=== PATIENT | female | born 2000 | race African-American/Black ===

== ENCOUNTER 2024-12-04 15:51 | Emergency (ER) | payer MEDICAID, SELFPAY ==
[2024-12-04 16:26] VITALS: BP 107/72; PULSE 77; TEMP 37; O2SAT 99; BMI 24.7
[2024-12-04 17:18] LABS: Internal Control Within Normal Limits; SARS-CoV-2 Ag NEGATIVE (NEGATIVE)
--- NOTE | 2024-12-04 17:42 | ED.GENADUL1 ---
HPI HPI - General Adult General Chief complaint: Upper Respiratory Infection Stated complaint: COUGH FEVER COVID EXPOSURE Time Seen by Provider: 12/04/24 16:09 Mode of arrival: walk-in History of Present Illness HPI narrative: Presents here with chief complaint of possible COVID exposure. She send response to COVID 2 days ago she is here with her children complaining of concern for possible COVID. Patient looks well afebrile she has no symptoms. Related Data Home Medications ?Medication ?Instructions ?Recorded ?Confirmed aripiprazole 5 mg tablet mg 12/04/24 hydroxyzine HCl 25 mg tablet mg 12/04/24 oxcarbazepine 300 mg tablet mg 12/04/24 Allergies Allergy/AdvReac Type Severity Reaction Status Date / Time No Known Drug Allergies Allergy Verified 12/04/24 16:26 Opioid HPI Opioid Management Most Recent Opioid Data: No Data to Display Review of Systems ROS Narrative All Systems are negative except as noted/marked.All systems reviewed and otherwise negative PFSH PFSH Social History Little interest or pleasure in doing things: not at all Feeling down, depressed, or hopeless: not at all Exam Narrative Exam Narrative: All Systems are negative except as noted/marked.All systems reviewed and otherwise negative Nurses note and vital signs reviewed and patient is not hypoxic. General: The patient appears well and in no apparent distress. Patient is resting comfortably on cart. Skin: Warm, dry, no pallor noted. There is no rash noted. Head: Normocephalic, atraumatic Eye: Normal conjunctiva, no drainage, EOMI. PERRL Ears, Nose, Mouth, and Throat: oral mucosa is moist. Nares patent. Mouth without vesicles. Ear canals patent. Tm's without Erythema Cardiovascular: Regular Rate and Rhythm Respiratory: Patient is in no distress, no accessory muscle use, lungs are clear to auscultation, no wheezing, rales or rhonchi Back: non-tender, no CVA tenderness bilaterally to percussion. GI: Normal bowel sounds, no tenderness to palpation, no masses appreciated. No rebound, guarding, or rigidity noted. Musculoskeletal: The patient has no evidence of calf tenderness, no pitting edema, symmetrical pulses noted bilaterally Neurological: A&O x4, normal speech Psychiatric: Cooperative Constitutional Vital Signs, click to edit/add: Last Vital Signs Temp 98.6 F 12/04/24 16:26 Pulse 77 12/04/24 16:26 Resp 16 12/04/24 16:26 BP 107/72 12/04/24 16:26 Pulse Ox 99 12/04/24 16:26 O2 Del Method Room Air 12/04/24 16:26 Course Vital Signs Vital signs: Vital Signs Temperature 98.6 F 12/04/24 16:26 Pulse Rate 77 12/04/24 16:26 Respiratory Rate 16 12/04/24 16:26 Blood Pressure 107/72 12/04/24 16:26 Pulse Oximetry 99 12/04/24 16:26 Oxygen Delivery Method Room Air 12/04/24 16:26 Temperature 98.6 F 12/04/24 16:26 Pulse Rate 77 12/04/24 16:26 Respiratory Rate 16 12/04/24 16:26 Blood Pressure 107/72 12/04/24 16:26 Pulse Oximetry 99 12/04/24 16:26 Oxygen Delivery Method Room Air 12/04/24 16:26 Medical Decision Making MDM Narrative Medical decision making narrative: Presenting here with chief complaint of COVID exposure. Her COVID swab is negative. Patient looks well no acute distress. Discharged home with URI instructions encouraged follow-up primary care physician as needed. Differential Diagnosis Differential Diagnosis: uri, covid, flu Medical Records Medical records reviewed: Yes I reviewed the patient's medical records Lab Data Lab results reviewed: Yes I reviewed the patient's lab results Labs: Lab Results 12/04/24 Range/Units 16:25 SARS-CoV-2 Ag (CV2AG) Negative (NEGATIVE) Discharge Plan Discharge Chief Complaint: Upper Respiratory Infection Clinical Impression: Upper respiratory infection Patient Disposition: Home, Self-Care Time of Disposition Decision: 17:35 Condition: Good Prescriptions / Home Meds: No Action oxcarbazepine 300 mg tablet hydroxyzine HCl 25 mg tablet aripiprazole 5 mg tablet Print Language: [place] Instructions: Upper Respiratory Infection (ED) Referrals: Physician,Non-Staff, MD [Primary Care Provider] - 1 week
[2024-12-04 18:00] LABS: Influenza Virus A Antigen Negative; Influenza Virus B Antigen Negative; Internal Control Within Normal Limits
== END 2024-12-04 17:40 | disposition home or self-care (01) ==
PROVIDERS: Physician Assistant; Emergency Provider Emergency Medicine
DX: J06.9 Acute upper respiratory infection, unspecified (principal); Z20.828 Contact with and (suspected) exposure to other viral communicable diseases
CPT/HCPCS: 87804; 87811; 99284